=== PATIENT | male | born 1960 | race African-American/Black ===

== ENCOUNTER 2021-12-04 01:34 | Emergency (ER) | payer OTHER ==
[~2021-12-04] VITALS: Ht 175.3 cm; Wt 121.4 kg
[2021-12-04] MEDS ORDERED: IBUPROFEN 600MG TABLET PO ONE (03:15)
[2021-12-04] MEDS ORDERED: PSEUDOEPHEDRINE HCL 30MG TABLET PO STA (03:15)
[2021-12-04] MEDS ORDERED: PSEU120T56 MT ×2 (03:31→15:08)
[2021-12-04 03:52] VITALS: BP 133/84
[2021-12-04] MEDS ORDERED: IBUP-2029 MT (15:08)
== END 2021-12-04 03:52 | disposition home or self-care (01) ==
LOC: EDSEX 01:34 → ER 01:34
DX: U07.1 COVID-19 (principal)
CPT/HCPCS: 87426; 87804; 99283; C9803; J7030; Z7610

== ENCOUNTER 2022-01-05 12:31 | Inpatient (IN) | payer MEDICAID, OTHER ==
[~2022-01-05] VITALS: Ht 172.7 cm; Wt 111.6 kg
[~2022-01-05 12:31] MED LIST: IBUP-2029 MT; PSEU120T56 MT
[2022-01-05] MEDS ORDERED: ONDANSETRON HCL 4MG/2ML INJ IV STA (13:46)
[2022-01-05] MEDS ORDERED: SODIUM CHLORIDE 0.9% 1,000 ML IV ONE (14:00)
[2022-01-05] MEDS ORDERED: MECLIZINE 25MG TABLET PO ONE (14:00)
[2022-01-05 14:08] LABS: BASOPHILS % 0.3 % (0.0-2.0); EOSINOPHILS % 1.7 % (0.0-5.0); HEMATOCRIT. 43.6 % (42.0-52.0); HEMOGLOBIN. 15.6 g/dL (14.0-18.0); MEAN CORPUSCULAR HEMOGLOBIN 32.8 pg (28.0-32.0); MEAN CORPUSCULAR VOLUME 91.4 fL (80.0-94.0); MEAN PLATELET VOLUME 8.4 fl (7.4-10.4); MONOCYTES % 8.8 % (2.0-8.0); NEUTROPHILS % 61.2 % (40.0-76.0); PLATELET 176 x1000/uL (130-400); RED BLOOD CELL COUNT 4.77 mill/uL (4.7-6.1); RED CELL DISTRIBUTION WIDTH 13.6 % (11.6-14.6)
[2022-01-05 14:11] LABS: CHLORIDE 106 mEq/L (98-107)
[2022-01-05 14:20] LABS: ETHANOL BLOOD < 10 mg/dL
[2022-01-05 18:03] LABS: CLARITY URINE CLEAR (CLEAR); COLOR URINE YELLOW (YELLOW); KETONES URINE NEGATIVE (NEGATIVE); LEUKOCYTE ESTERASE URINE NEGATIVE (NEGATIVE); NITRITE URINE NEGATIVE (NEGATIVE); OCCULT BLOOD URINE NEGATIVE (NEGATIVE); PH URINE 5.5 (4.5-8.0); PROTEIN URINE TRACE (NEGATIVE); SPECIFIC GRAVITY URINE 1.022 (1.005-1.030)
[2022-01-05 18:29] LABS: *AMPHETAMINES SCREEN URINE NEGATIVE (NEGATIVE); *BARBITURATES SCREEN URINE NEGATIVE (NEGATIVE); *BENZODIAZEPINES SCREEN URINE NEGATIVE (NEGATIVE); *COCAINE SCREEN URINE NEGATIVE (NEGATIVE); CANNABINOID URINE SCREEN NEGATIVE (NEGATIVE); METHADONE URINE SCREEN NEGATIVE (NEGATIVE); OPIATES URINE SCREEN NEGATIVE (NEGATIVE); PHENCYCLIDINE URINE SCREEN NEGATIVE (NEGATIVE)
[2022-01-05] MEDS ORDERED: ONDA4TAB11 PO (20:16)
[2022-01-05] MEDS ORDERED: MECL-159 MT (20:16)
[2022-01-05] MEDS ORDERED: ASPIRIN 325MG EC TABLET PO ONE (22:00)
[2022-01-05 23:45] VITALS: BP 135/68
[2022-01-06] VITALS (11 sets, daily range): BP systolic 92–161; BP diastolic 52–91
[2022-01-06] MEDS ORDERED: PSEUDOEPHEDRINE HCL 30MG TABLET PO PRN (01:45)
[2022-01-06] MEDS ORDERED: ONDANSETRON HCL 4MG TABLET PO PRN (01:45)
[2022-01-06] MEDS ORDERED: MECLIZINE 25MG TABLET PO PRN (01:45)
[2022-01-06 09:18] LABS: CHLORIDE 103 mEq/L (98-107)
[2022-01-06 09:20] LABS: BASOPHILS % 0.5 % (0.0-2.0); EOSINOPHILS % 2.6 % (0.0-5.0); HEMATOCRIT. 44.1 % (42.0-52.0); HEMOGLOBIN. 15.2 g/dL (14.0-18.0); LYMPHOCYTES % 27.9 % (20.0-50.0); MEAN CORPUSCULAR HEMOGLOBIN 31.5 pg (28.0-32.0); MEAN CORPUSCULAR VOLUME 91.6 fL (80.0-94.0); MEAN PLATELET VOLUME 8.6 fl (7.4-10.4); PLATELET 179 x1000/uL (130-400); RED BLOOD CELL COUNT 4.82 mill/uL (4.7-6.1); RED CELL DISTRIBUTION WIDTH 13.9 % (11.6-14.6)
[2022-01-06 09:30] LABS: HDL CHOLESTEROL 44 mg/dL (40-59); LDL CHOLESTEROL 106 mg/dL (5-100)
[2022-01-06] MEDS: AMLODIPINE 10MG TABLET PO SCH (19:35)
[2022-01-07] VITALS (7 sets, daily range): BP systolic 127–179; BP diastolic 57–87
[2022-01-07] MEDS: AMLODIPINE 10MG TABLET PO SCH (09:45)
[2022-01-07] MEDS: ASPIRIN 81MG TABLET PO SCH (09:45)
[2022-01-07] MEDS ORDERED: DEXTROSE 50% WATER 50ML SYRINGE IV PRN (13:15)
[2022-01-07] MEDS: METOPROLOL TARTRATE 25MG TABLET PO SCH ×2 (14:52→21:11)
[2022-01-07] MEDS: BLOOD SUGAR DIAGNOSTIC STRIP TEST SCH ×2 (17:20→21:12)
[2022-01-07] MEDS: INSULIN LISPRO 100 UNITS/ML SUBCUT SCH ×2 (18:50→21:10)
[2022-01-07] MEDS ORDERED: INSULIN GLARGINE 100 UNITS/ML SUBCUT NR (19:30)
[2022-01-07] MEDS: AMLODIPINE 5MG TABLET PO SCH (21:11)
[2022-01-08] VITALS (7 sets, daily range): BP systolic 111–155; BP diastolic 55–92
[2022-01-08] MEDS: BLOOD SUGAR DIAGNOSTIC STRIP TEST SCH ×3 (06:25→17:20)
[2022-01-08] MEDS: INSULIN LISPRO 100 UNITS/ML SUBCUT SCH ×3 (08:41→17:50)
[2022-01-08] MEDS ORDERED: INSULIN GLARGINE 100 UNITS/ML SUBCUT SCH (10:00)
[2022-01-08] MEDS: METOPROLOL TARTRATE 25MG TABLET PO SCH (10:07)
[2022-01-08] MEDS: ASPIRIN 81MG TABLET PO SCH (10:07)
[2022-01-08] MEDS: AMLODIPINE 5MG TABLET PO SCH (10:07)
== END 2022-01-08 21:45 | disposition left against medical advice (07) | DRG 48 ==
LOC: ER 12:49 → 6WST 21:48 → ENRESERV 22:52 → CMPBEDREQ 23:12 → ER 23:54
PROVIDERS: ADMIT Internal Medicine; ATTEND Internal Medicine
DX: G90.8 Other disorders of autonomic nervous system (principal); E11.9 Type 2 diabetes mellitus without complications; I10 Essential (primary) hypertension; R07.89 Other chest pain; R94.31 Abnormal electrocardiogram [ECG] [EKG]; Z53.29 Procedure and treatment not carried out because of patient's decision for other reasons; G47.33 Obstructive sleep apnea (adult) (pediatric); E66.01 Morbid (severe) obesity due to excess calories; Z68.37 Body mass index [BMI] 37.0-37.9, adult; Z86.16 Personal history of COVID-19; Z71.3 Dietary counseling and surveillance
CPT/HCPCS: 36415; 70551; 71045; 80053; 80061; 80305; 80320; 81003; 82962; 83036; 83880; 84484; 85025; 93005; 93306; 93880; 99285; J1815; J2405; J7030; J8597; G0480